=== PATIENT | male | born 1955 | race Caucasian/White ===

== ENCOUNTER 2021-09-05 14:51 | Inpatient (IN) | payer MEDICARE, OTHER ==
[~2021-09-05] VITALS: Ht 177.8 cm; Wt 93.4 kg
[2021-09-05] VITALS (8 sets, daily range): BP systolic 91–123; BP diastolic 29–79
[2021-09-05 15:28] LABS: BASOPHILS % 0.5 % (0.0-1.0); EOSINOPHILS % 1.1 % (0.0-6.0); HEMATOCRIT 35.4 % (38.2-49.6); HEMOGLOBIN 11.6 g/dL (14.0-18.0); LYMPHOCYTES # (AUTO) 0.2 (1.0-3.2); MEAN CORPUSCULAR HEMOGLOBIN 28.8 pg (28-32); MEAN CORPUSCULAR HGB CONC 32.8 g/dL (31-35); MEAN CORPUSCULAR VOLUME 87.8 fL (81-99); MONOCYTES # (AUTO) 0.3 (0.2-0.8); MONOCYTES % 8.2 % (4.4-11.3); NEUTROPHILS # (AUTO) 3.1 (2.1-6.9); NEUTROPHILS % 83.9 % (38.7-80.0); PLATELET COUNT 117 x10e3/uL (140-360); RED BLOOD COUNT 4.03 x10e6/uL (4.3-5.7); RED CELL DISTRIBUTION WIDTH 12.4 % (11.7-14.4)
[2021-09-05 15:43] LABS: INR 1.05; PROTHROMBIN TIME 14.6 seconds (11.9-14.5)
[2021-09-05 15:44] LABS: PARTIAL THROMBOPLASTIN TIME 35.2 seconds (23.8-35.5)
[2021-09-05 15:49] LABS: ALANINE AMINOTRANSFERASE 6 IU/L (0-55); ALBUMIN 2.8 g/dL (3.5-5.0); ALBUMIN/GLOBULIN RATIO 1.4 (0.8-2.0); ALKALINE PHOSPHATASE 72 IU/L (40-150); ANION GAP 14.2 mmol/L (8-16); BLOOD UREA NITROGEN 9 mg/dL (7-26); BUN/CREATININE RATIO 10 (6-25); CARBON DIOXIDE 21 mmol/L (22-29); CHLORIDE 112 mmol/L (98-107); CREATINE KINASE 31 IU/L (30-200); CREATININE, SERUM 0.87 mg/dL (0.72-1.25); GLUCOSE 88 mg/dL (74-118); POTASSIUM 3.2 mmol/L (3.5-5.1); SODIUM 144 mmol/L (136-145)
[2021-09-05] MEDS ORDERED: LACTATED RINGER'S 1,000 ML INJ ONE (16:00)
[2021-09-05 16:01] LABS: CALCIUM 8.3 mg/dL (8.4-10.2)
[2021-09-05] MEDS: SODIUM CHLORIDE 0.9% 1000ML 1,000 ML IV SCH ×2 (16:49→23:59)
[2021-09-05 16:57] LABS: CLARITY,URINE HAZY (CLEAR); COLOR,URINE YELLOW (YELLOW)
[2021-09-05 16:58] LABS: KETONES,URINE TRACE (NEGATIVE); LEUKOCYTE ESTERASE ,URINE NEGATIVE (NEGATIVE); NITRITE,URINE NEGATIVE (NEGATIVE); PROTEIN,URINE DIPSTICK TRACE (NEGATIVE); URINE UROBILINOGEN 0.2 mg/dL (0.2 - 1)
[2021-09-05 17:05] LABS: BACTERIA,URINE FEW /HPF; EPITHELIAL CELLS,URINE FEW /LPF; RBC,URINE 21-50 /HPF (0-5)
[2021-09-05] MEDS ORDERED: LEVOFLOXACIN250 MG PO (19:42)
[2021-09-05] MEDS ORDERED: ROPINIROLE PO (19:42)
[2021-09-05] MEDS ORDERED: METOPROLOL TART25 MG PO (19:42)
[2021-09-05] MEDS ORDERED: FINASTERIDE5 MG PO (19:42)
[2021-09-05] MEDS ORDERED: MYRBETRIQ50 MG PO (19:42)
[2021-09-05] MEDS ORDERED: SIMVASTATIN40 MG PO (19:42)
[2021-09-05] MEDS ORDERED: DOXAZOSIN MESYLA2 MG PO (19:42)
[2021-09-05] MEDS ORDERED: GABAPENTIN300 MG PO (19:42)
[2021-09-05] MEDS ORDERED: CARBIDOPA-LEVO1 EA10 PO (19:42)
[2021-09-05] MEDS ORDERED: POTASSIUM CHLORIDE 10MEQ EA PO ONE (21:00)
[2021-09-05] MEDS: CARBIDOPA/LEVODOPA 25/100 TAB PO SCH (21:24)
[2021-09-06] VITALS (25 sets, daily range): BP systolic 79–160; BP diastolic 56–127
[2021-09-06 05:34] LABS: HEMATOCRIT 37.9 % (38.2-49.6); HEMOGLOBIN 12.6 g/dL (14.0-18.0); LYMPHOCYTES # (AUTO) 0.6 (1.0-3.2); LYMPHOCYTES % 18.8 % (18.0-39.1); MEAN CORPUSCULAR HEMOGLOBIN 28.9 pg (28-32); MEAN CORPUSCULAR HGB CONC 33.2 g/dL (31-35); MEAN CORPUSCULAR VOLUME 86.9 fL (81-99); MONOCYTES # (AUTO) 0.5 (0.2-0.8); MONOCYTES % 14.4 % (4.4-11.3); NEUTROPHILS % 64.8 % (38.7-80.0); PLATELET COUNT 102 x10e3/uL (140-360); RED BLOOD COUNT 4.36 x10e6/uL (4.3-5.7); RED CELL DISTRIBUTION WIDTH 12.4 % (11.7-14.4)
[2021-09-06 06:03] LABS: ANION GAP 10.6 mmol/L (8-16); CALCIUM 8.4 mg/dL (8.4-10.2); CREATININE, SERUM 1.08 mg/dL (0.72-1.25); POTASSIUM 4.6 mmol/L (3.5-5.1)
[2021-09-06] MEDS: SODIUM CHLORIDE 0.9% 1000ML 1,000 ML IV SCH ×3 (08:38→23:15)
[2021-09-06] MEDS: CARBIDOPA/LEVODOPA 25/100 TAB PO SCH ×3 (08:38→20:39)
[2021-09-06] MEDS ORDERED: ONDANSETRON HCL INJ 2MG/ML 2ML 2 MG/ML VIAL IV PRN (08:45)
[2021-09-06] MEDS ORDERED: ACETAMINOPHEN 325 MG TAB PO PRN (08:45)
[2021-09-06] MEDS: FINASTERIDE 5 MG TAB PO SCH (10:01)
[2021-09-06] MEDS: SIMVASTATIN 40 MG TAB PO SCH (10:01)
[2021-09-06] MEDS: NIRMATRELVIR/RITONAVIR 1 EACH TABLET PO SCH ×2 (14:47→20:39)
[2021-09-06] MEDS: ENOXAPARIN SOD INJ 40 MG/0.4 ML SYR SC SCH (18:40)
[2021-09-07] VITALS (8 sets, daily range): BP systolic 96–153; BP diastolic 52–87
[2021-09-07 06:00] LABS: BASOPHILS % 0.6 % (0.0-1.0); EOSINOPHILS # (AUTO) 0.1 (0.0-0.4); EOSINOPHILS % 3.7 % (0.0-6.0); HEMOGLOBIN 13.7 g/dL (14.0-18.0); LYMPHOCYTES # (AUTO) 0.9 (1.0-3.2); LYMPHOCYTES % 24.2 % (18.0-39.1); MEAN CORPUSCULAR HEMOGLOBIN 28.8 pg (28-32); MEAN CORPUSCULAR HGB CONC 33.4 g/dL (31-35); MEAN CORPUSCULAR VOLUME 86.1 fL (81-99); MONOCYTES # (AUTO) 0.6 (0.2-0.8); MONOCYTES % 16.9 % (4.4-11.3); NEUTROPHILS # (AUTO) 1.9 (2.1-6.9); PLATELET COUNT 106 x10e3/uL (140-360); RED BLOOD COUNT 4.76 x10e6/uL (4.3-5.7); RED CELL DISTRIBUTION WIDTH 12.4 % (11.7-14.4)
[2021-09-07 06:26] LABS: ALBUMIN 3.4 g/dL (3.5-5.0); ALBUMIN/GLOBULIN RATIO 1.4 (0.8-2.0); ANION GAP 12.3 mmol/L (8-16); CALCIUM 8.5 mg/dL (8.4-10.2); CREATININE, SERUM 1.04 mg/dL (0.72-1.25); POTASSIUM 4.3 mmol/L (3.5-5.1)
[2021-09-07] MEDS: SODIUM CHLORIDE 0.9% 1000ML 1,000 ML IV SCH ×2 (09:54→16:48)
[2021-09-07] MEDS: FINASTERIDE 5 MG TAB PO SCH (09:54)
[2021-09-07] MEDS: SIMVASTATIN 40 MG TAB PO SCH (09:54)
[2021-09-07] MEDS: CARBIDOPA/LEVODOPA 25/100 TAB PO SCH ×3 (09:54→21:22)
[2021-09-07] MEDS: NIRMATRELVIR/RITONAVIR 1 EACH TABLET PO SCH ×2 (09:54→21:23)
[2021-09-07] MEDS: ENOXAPARIN SOD INJ 40 MG/0.4 ML SYR SC SCH (16:47)
[2021-09-08] VITALS (8 sets, daily range): BP systolic 118–170; BP diastolic 81–95
[2021-09-08] MEDS: SODIUM CHLORIDE 0.9% 1000ML 1,000 ML IV SCH ×4 (06:19→23:15)
[2021-09-08] MEDS: NIRMATRELVIR/RITONAVIR 1 EACH TABLET PO SCH (09:45)
[2021-09-08] MEDS: FINASTERIDE 5 MG TAB PO SCH (09:45)
[2021-09-08] MEDS: AZITHROMYCIN 250 MG TAB PO SCH (09:45)
[2021-09-08] MEDS: CARBIDOPA/LEVODOPA 25/100 TAB PO SCH ×3 (09:45→21:00)
[2021-09-08] MEDS: SIMVASTATIN 40 MG TAB PO SCH (09:47)
[2021-09-08] MEDS ORDERED: ONDANSETRON HCL 4 MG ORAL DISINTEGRATING TAB PO PRN ×2 (13:15)
[2021-09-08] MEDS ORDERED: ZIPRASIDONE 20 MG VIAL IM ONE ×2 (13:30→21:00)
[2021-09-08] MEDS: ENOXAPARIN SOD INJ 40 MG/0.4 ML SYR SC SCH (17:50)
[2021-09-09] VITALS: BP 165/87
[2021-09-09 04:00] VITALS: BP 164/88
[2021-09-09 06:41] LABS: BASOPHILS # (AUTO) 0.1 (0.0-0.1); BASOPHILS % 1.4 % (0.0-1.0); EOSINOPHILS # (AUTO) 0.1 (0.0-0.4); EOSINOPHILS % 3.9 % (0.0-6.0); HEMATOCRIT 39.6 % (38.2-49.6); HEMOGLOBIN 13.4 g/dL (14.0-18.0); LYMPHOCYTES # (AUTO) 1.1 (1.0-3.2); LYMPHOCYTES % 30.1 % (18.0-39.1); MEAN CORPUSCULAR HEMOGLOBIN 28.9 pg (28-32); MEAN CORPUSCULAR HGB CONC 33.8 g/dL (31-35); MEAN CORPUSCULAR VOLUME 85.3 fL (81-99); MONOCYTES # (AUTO) 0.4 (0.2-0.8); MONOCYTES % 12.4 % (4.4-11.3); NEUTROPHILS # (AUTO) 1.8 (2.1-6.9); NEUTROPHILS % 51.6 % (38.7-80.0); PLATELET COUNT 141 x10e3/uL (140-360); RED BLOOD COUNT 4.64 x10e6/uL (4.3-5.7); RED CELL DISTRIBUTION WIDTH 12.7 % (11.7-14.4)
[2021-09-09 07:13] LABS: ANION GAP 12.3 mmol/L (8-16); CALCIUM 8.2 mg/dL (8.4-10.2); CREATININE, SERUM 0.98 mg/dL (0.72-1.25); POTASSIUM 4.3 mmol/L (3.5-5.1)
[2021-09-09 07:53] VITALS: BP 134/49
[2021-09-09] MEDS: SIMVASTATIN 40 MG TAB PO SCH (09:45)
[2021-09-09] MEDS: FINASTERIDE 5 MG TAB PO SCH (09:45)
[2021-09-09] MEDS: CARBIDOPA/LEVODOPA 25/100 TAB PO SCH ×2 (09:45→17:34)
[2021-09-09] MEDS: AZITHROMYCIN 250 MG TAB PO SCH (09:45)
[2021-09-09] MEDS: SODIUM CHLORIDE 0.9% 1000ML 1,000 ML IV SCH ×2 (09:46→15:54)
[2021-09-09 09:53] VITALS: BP 134/49
[2021-09-09 11:41] VITALS: BP 144/91
[2021-09-09 16:02] VITALS: BP 144/87
[2021-09-09] MEDS: ENOXAPARIN SOD INJ 40 MG/0.4 ML SYR SC SCH (17:34)
[2021-09-09] MEDS: NIRMATRELVIR/RITONAVIR 1 EACH TABLET PO SCH (17:36)
== END 2021-09-09 18:21 | DRG 177 ==
LOC: ER 15:05 → EDBD 15:05 → ERHOLD 16:28 → ICU 18:15 → MED/SURG2 09-06 18:18
PROVIDERS: ADMIT Internal Medicine; ATTEND Internal Medicine
PROC: XW0DXF5 Introduction of Other New Technology Therapeutic Substance into Mouth and Pharynx, External Approach, New Technology Group 5 (ICD-10-PCS; principal; 2021-09-06)
DX: U07.1 COVID-19 (principal); G93.41 Metabolic encephalopathy; N39.0 Urinary tract infection, site not specified; I95.9 Hypotension, unspecified; G20 Parkinson's disease; I10 Essential (primary) hypertension; N40.1 Benign prostatic hyperplasia with lower urinary tract symptoms; E87.6 Hypokalemia; D69.6 Thrombocytopenia, unspecified; E66.9 Obesity, unspecified; Z68.29 Body mass index [BMI] 29.0-29.9, adult; D64.9 Anemia, unspecified; N31.9 Neuromuscular dysfunction of bladder, unspecified
CPT/HCPCS: 36415; 70450; 71045; 74230; 80048; 80053; 81001; 82550; 82553; 83605; 84484; 85025; 85610; 85730; 87040; 93005; 94799; 97139; 99285; J0456; J0696; J1650; J3486; J7030; J7050; J7121; Q0162